=== PATIENT | male | born 1975 | race Caucasian/White ===

== ENCOUNTER 2018-08-25 19:26 | Emergency (ER) | payer SELFPAY ==
[~2018-08-25] VITALS: Ht 162.6 cm; Wt 63.0 kg
[2018-08-25 19:37] VITALS: BP 161/110; PULSE 104; RESP 20; Ht 162.6 cm; Wt 63.0 kg
== END 2018-08-25 23:45 | disposition left against medical advice (07) ==
LOC: E/R 19:26
DX: Z53.21 Procedure and treatment not carried out due to patient leaving prior to being seen by health care provider (principal)